=== PATIENT | female | born 1985 | race American Indian/Alaskan Native ===

== ENCOUNTER 2024-12-07 17:54 | Emergency (ER) | payer OTHER ==
--- OUTSIDE RECORDS SUMMARY | 2024-12-07 17:57 | XMS REPORT | Continuity of Care Document ---
Author Name Unknown Address [address] [facility] [address] [place] [address] [facility] Address [address] [facility] [address] [place] [address] Care Team Providers Care Sales Agent Fire Insurance Name Role Phone Kandace Moulton Primary Care Physician Ileana MAGDALENO MD Attending Clinician UnavailPPAO Bae Attending Clinician Unavailable [id number] Attending Clinician Unavailable ANKUR JANE Attending Clinician Unavailable BALWINDER JASSO Attending Clinician BALWINDER Jacob Attending Clinician Balwinder Jacob MD Attending Clinician [phone]- [phone] LUI ANTONIO Attending Clinician Unavailable PENG RAGSDALE Attending Clinician Unavailable LUCI BROCK Attending Clinician UnavailHIMANSHU Hancock Attending Clinician UnavailSANDY Mcdonnell Attending Clinician Unavailable JASEN LAGUNAS Attending Clinician Unavailable SHELLY INGRAM Attending Clinician UnavailKANDACE Brice Attending Clinician Unavailable Visit, [facility] Nurse Attending Clinician Kandace Campos Attending Clinician [phone] Doctor Unassigned, Odanah Attending Clinician U Zeb Shi MD Attending Clinician [phone] FoGhanshyam Mcgowan Attending Clinician [phone] ZEB HERNANDEZ Attending Clinician Unavailable Tre Rosario ENP Attending Clinician [phone] ZEB HERNANDEZ Admitting Clinician Unavailable Payers Payer Name Policy Type Policy Number Effective Date Expirati on Date Source SELF-PAY CI [id number] [employer] [id number] 2022 00:00:00 MEDICAID ALIEN PENDING PENDING 2022 00:00:00 [facility] HELEN RADHIKA COPAY FOCUS 9 [id number] 2024 00:00:00 [facility]/ THI HOLLY OON [id number] 2024 00:00:00 [facility] HELEN MP 1 [id number] 2023 00:00:00 [employer] [facility] 2 [id number] 2023 00:00:00 FAMILY PLANNING LOLI 0-100% [id number] 2022 00:00:00 Problems Condition Name Condition Details Condition Category Status Onset Date Resolution Date Last Treatment Date Treating Clinician Comments Source Recent foreign travel Recent foreign travel Disease Active 09-19 00:00: 00 [facility] Vaginal discharge during in second trimester Vaginal discharge during in second trimester Disease Active 09-19 00:00: 00 [facility] Obesity in Obesity in Disease Active 09-19 00:00: 00 [facility] History of delivery, currently History of delivery, currently Disease Active 09-19 00:00: 00 [facility] Obesity (BMI 30-39.9) Obesity (BMI 30-39.9) Disease Active 09-18 00:00: 00 [facility] Allergies, Adverse Reactions, Alerts Allergy Name Allergy Type Status Severity Reaction(s) Onset Date Inactive Date Treating Clinician Comments Source NO KNOWN ALLERGIE S Drug Class Active [facility] Social History Social Habit Start Date Stop Date Quantity Comments Source ASSERTION Not Thi Holly - External Sexual orientation Debby Holly - External Tobacco use and exposure 2024-07-21 00:00:00 2024-07-21 00:00:00 Smokeless tobacco non-user Thi Holly - External History of Social function 2024-07-21 00:00:00 2024-07-21 00:00:00 Thi Holly - External Alcoholic beverage intake 2023-05-24 00:00:00 2023-05-24 00:00:00 Lifetime non-drinker (finding) [facility] Sex 2023-04-28 19:30:04 2023-04-28 19:30:04 Female (finding) Thi Hernandezsana - External Alcohol intake 2022-09-24 00:00:00 2022-09-24 00:00:00 Lifetime non-drinker (finding) [facility] Exposure to SARS-CoV-2 (event) 2022-09-07 00:00:00 2022-09-17 23:12:00 Not sure [facility] Sex assigned at 1985 00:00:00 1985 00:00:00 Thi Holly - External Smoking Status Start Date Stop Date Source Tobacco smoking consumption unknown Thi Zelaya Never smoked tobacco Thi Holly - External Medications Ordered Medication Name Filled Medication Name Start Date Stop Date Current Medication? Ordering Clinician Indication Dosage Frequency Signature (SIG) Comments Components Source BIOTIN OR 07-21 10:28: 02 Yes Take by mouth. Thi live Cholecalcif steven (Vitamin D) 50 MCG (2000 UT) oral Tablet 07-21 10:28: 02 Yes 2000U QD Take 1 tablet (2,000 units total) by mouth daily. Thi live Amitriptyli ne HCl 25 MG oral Tablet 07-21 00:00: 00 Yes [id number] 25mg QD Take 1 tablet (25 mg total) by mouth nightly. Thi live BIOTIN OR 2023-04 15:50: 47 Yes Take by mouth. Thi live Cholecalcif steven (Vitamin D) 50 MCG (2000 UT) oral Tablet 2023-04 15:50: 47 Yes 2000U QD Take 1 tablet (2,000 units total) by mouth daily. Thi live Cholecalcif steven (Vitamin D) 50 MCG (2000 UT) oral Tablet 2023-04 16:40: 28 Yes 2000U QD Take 1 tablet (2,000 units total) by mouth daily. Tih live BIOTIN OR 2023-04 16:39: 20 Yes Take by mouth. Thi live Cetirizine (ZYRTEC) 10 MG oral Tablet 2023-04 00:00: 00 07-21 00:00 :00 No [id number] 10mg QD Take 1 tablet (10 mg total) by mouth daily. Thi live FLUTICASONE PROPIONATE, NASAL, 50 MCG/ACT nasal Suspension 2023-04 00:00: 00 07-21 00:00 :00 No [id number] 50ug QD Use 1 spray (50 mcg total) in each nostril daily. Thi live Ipratropium Cicero 0.03 % nasal Solution 2023-04 00:00: 00 07-21 00:00 :00 No [id number] 2{spray } Use 2 sprays in each nostril every 12 hours. Thi live BIOTIN OR 10-19 15:02: 49 Yes Take by mouth. Thi live Cholecalcif steven (Vitamin D) 50 MCG (2000 UT) oral Tablet 10-19 15:02: 49 Yes 2000U QD Take 1 tablet (2,000 units total) by mouth daily. hTi live Vit-Fe Fumarate-FA ( Vitamin) 27-0.8 MG oral Tablet 01-06 00:00: 00 Yes 1{tbl} QD Take 1 tablet by mouth daily. Thi live metroNIDAZO LE (FLAGYL) 500 mg tablet 09-25 00:00: 00 10-03 04:59 :00 No [id number] 500mg Take 1 tablet by mouth every 12 (twelve) hours for 7 days. [facility] Immunizations Ordered Immunization Name Filled Immunization Name Date Status Comments Source PPD (TB) 2022-09-22 00:00:00 Completed [facility] PPD (TB) 2022-09-22 00:00:00 Completed [facility] PPD (TB) 2022-09-22 00:00:00 Completed [facility] PPD (TB) 2022-09-22 00:00:00 Completed [facility] PPD (TB) 2022-09-22 00:00:00 Completed [facility] PPD-Protein Derivative (Purified)- Tuberculin Unknown Completed Thi Hernandezold - External Influenza Virus Vaccine, No Preserv, age 6 months and up Unknown Completed Thi Holly - External Tdap- (Boostrix, Adacel) Unknown Completed Thi Hernandezold - External PPD (TB) Unknown Completed [facility] Vital Signs Vital Name Observation Time Observation Value Comments S ource Body temperature 2024-07-21 15:21:00 36.72 Sariah Thi Seybold - External Respiratory rate 2024-07-21 15:21:00 20 /min Thi Seybold - External Body height 2024-07-21 15:21:00 167.6 cm Lindsay ey Seybold - External Body weight 2024-07-21 15:21:00 104.327 kg Lindsay ey Seybold - External BMI 2024-07-21 15:21:00 37.12 kg/m2 Lindsay ey Seybold - External Oxygen saturation in Arterial blood by Pulse oximetry 2024-07-21 15:21:00 99 /min Thi Bernalybo ld - External Systolic blood pressure 2024-07-21 15:21:00 112 mm[Hg] Thi Seybo ld - External Diastolic blood pressure 2024-07-21 15:21:00 78 mm[Hg] Thi Seybo ld - External Heart rate 2024-07-21 15:21:00 81 /min Kelse y Seybold - External Systolic blood pressure 2024-04-19 21:49:00 131 mm[Hg] Thi Seybo ld - External Diastolic blood pressure 2024-04-19 21:49:00 84 mm[Hg] Thi Seybo ld - External Heart rate 2024-04-19 21:49:00 76 /min Kelse y Seybold - External Body temperature 2024-04-19 21:49:00 36.17 Sariah Thi Seybold - External Respiratory rate 2024-04-19 21:49:00 15 /min Thi Seybold - External Body height 2024-04-19 21:49:00 167.6 cm Lindsay ey Seybold - External Body weight 2024-04-19 21:49:00 59.875 kg Lindsay ey Seybold - External BMI 2024-04-19 21:49:00 21.31 kg/m2 Lindsay ey Seybold - External Oxygen saturation in Arterial blood by Pulse oximetry 2024-04-19 21:49:00 99 /min Thi Seybo ld - External Systolic blood pressure 2024-03-10 22:39:00 126 mm[Hg] Thi Seybo ld - External Diastolic blood pressure 2024-03-10 22:39:00 79 mm[Hg] Thi Seybo ld - External Heart rate 2024-03-10 22:39:00 82 /min Kelse y Seybold - External Body temperature 2024-03-10 22:39:00 36.67 Sariah Thi Seybold - External Respiratory rate 2024-03-10 22:39:00 18 /min Thi Seybold - External Body height 2024-03-10 22:39:00 167.6 cm Lindsay ey Seybold - External Body weight 2024-03-10 22:39:00 104.146 kg Lindsay ey Seybold - External BMI 2024-03-10 22:39:00 37.06 kg/m2 Lindsay ey Seybold - External Systolic blood pressure 2023-10-20 19:59:00 104 mm[Hg] Thi Seybo ld - External Diastolic blood pressure 2023-10-20 19:59:00 70 mm[Hg] Thi Seybo ld - External Heart rate 2023-10-20 19:59:00 64 /min Kelse y Seybold - External Body temperature 2023-10-20 19:59:00 36.83 Sariah Thi Seybold - External Respiratory rate 2023-10-20 19:59:00 18 /min Thi Seybold - External Body height 2023-10-20 19:59:00 167.6 cm Lindsay ey Seybold - External Body weight 2023-10-20 19:59:00 102.785 kg Lindsay ey Seybold - External BMI 2023-10-20 19:59:00 36.57 kg/m2 Lindsay Holly - External Oxygen saturation in Arterial blood by Pulse oximetry 2023-10-20 19:59:00 99 /min Thi Lozoya ld - External Diastolic blood pressure 2022-09-24 15:00:00 74 mm[Hg] [facility] Heart rate 2022-09-24 15:00:00 80 /min [facility] Body temperature 2022-09-24 15:00:00 36.44 Sariah [facility] Respiratory rate 2022-09-24 15:00:00 16 /min [facility] Body height 2022-09-24 15:00:00 170.2 cm [facility] Body weight 2022-09-24 15:00:00 102.967 kg [facility] BMI 2022-09-24 15:00:00 35.55 kg/m2 [facility] Systolic blood pressure 2022-09-24 15:00:00 126 mm[Hg] [facility] Systolic blood pressure 2022-09-22 14:33:00 119 mm[Hg] [facility] Diastolic blood pressure 2022-09-22 14:33:00 77 mm[Hg] [facility] Heart rate 2022-09-22 14:33:00 79 /min [facility] Body temperature 2022-09-22 14:33:00 36.17 Sariah [facility] Respiratory rate 2022-09-22 14:33:00 16 /min [facility] Body height 2022-09-22 14:33:00 170.2 cm [facility] Body weight 2022-09-22 14:33:00 102.876 kg [facility] BMI 2022-09-22 14:33:00 35.52 kg/m2 [facility] Systolic blood pressure 2022-09-19 18:30:00 127 mm[Hg] [facility] Diastolic blood pressure 2022-09-19 18:30:00 84 mm[Hg] [facility] Heart rate 2022-09-19 18:30:00 74 /min [facility] Body temperature 2022-09-19 18:30:00 36.22 Sariah [facility] Respiratory rate 2022-09-19 18:30:00 19 /min [facility] Body height 2022-09-19 18:30:00 170.2 cm [facility] Body weight 2022-09-19 18:30:00 102.649 kg [facility] BMI 2022-09-19 18:30:00 35.44 kg/m2 [facility] Systolic blood pressure 2022-09-18 05:00:00 110 mm[Hg] [facility] Diastolic blood pressure 2022-09-18 05:00:00 59 mm[Hg] [facility] Heart rate 2022-09-18 05:00:00 71 /min [facility] Oxygen saturation in Arterial blood by Pulse oximetry 2022-09-18 05:00:00 100 /min [facility] Body temperature 2022-09-18 04:45:00 36.78 Sariah [facility] Respiratory rate 2022-09-18 04:45:00 18 /min [facility] Body height 2022-09-18 04:44:00 165.1 cm [facility] Body weight 2022-09-18 04:44:00 104.463 kg [facility] BMI 2022-09-18 04:44:00 38.32 kg/m2 [facility] Procedures Procedure Date / Time Performed Performing Clinicia n Source EXTERNAL PROVIDER RECORDS 2022-09-22 05:01:00 Doctor Unassigned, Odanah [facility] ASSIGNMENT OF BENEFITS 2022-09-19 18:11:34 Docto r Unassigned, Odanah [facility] POCT URINALYSIS W/O SPECIFIC GRAVITY 2022-09-19 00:00:00 Ghanshyam Mcdonnell [facility] LCC OR CLC ONLY - AMNISURE ROM TEST 2022-09-18 05:45:00 Zeb Hernandez [facility] CONSENT/REFUSAL FOR DIAGNOSIS AND TREATMENT 2022-09-18 03:59:16 Doctor Unassigned, Odanah [facility] Encounters Start Date/Time End Date/Time Encounter Type Admission Type Attending Clinicians Care Facility Care Department Encounter ID Source 2023-06-09 09:20:02 Outpatient IBNS IBNS [id number] Khari Johnathan 2022-11-07 11:56:46 Outpatient [facility] [id number] [facility] 2022-09-19 13:31:22 Outpatient X [facility] PUJA [id number] [facility] 2024-08-25 00:00:00 2024-08-25 00:00:00 Outpatient MD THI HANSEN [id number] Thi [facility] 2024-08-01 00:00:00 2024-08-01 00:00:00 Outpatient PAPO MARAVILLA [id number] [facility] 2024-07-25 00:00:00 2024-07-25 00:00:00 Outpatient PAPO MARAVILLA [id number] Thi [facility] 2024-07-21 11:15:00 2024-07-21 11:15:00 Outpatient [id number] THI SHERIFF [id number] [facility] 2024-07-21 10:30:00 2024-07-21 10:30:00 Outpatient PAPO MARAVILLA [id number] [facility] 2024-07-12 11:00:00 2024-07-12 11:00:00 Outpatient ANKUR JANE [id number] [facility] 2024-05-03 09:00:00 2024-05-03 09:00:00 Outpatient R BALWINDER PAGAN [facility] [id number] [facility] 2024-04-27 00:00:00 2024-04-28 13:56:20 Telephone Balwinder Pagan [facility] [id number] [id number] [id number] [facility] 2024-04-19 15:00:00 2024-04-19 15:00:00 Outpatient LUI ANTONIO THI SHERIFF [id number] Thi [facility] 2024-03-10 16:30:00 2024-03-10 16:30:00 Outpatient PENG RAGSDALE THI SHERIFF [id number] Thi [facility] 2023-10-23 15:30:00 2023-10-23 15:30:00 Outpatient DELMY LUCIGiuliana SHERIFF [id number] Thi [facility] 2023-10-23 08:30:00 2023-10-23 08:30:00 Outpatient MIGNON PACHECORICH THI SHERIFF [id number] [facility] 2023-10-21 00:00:00 2023-10-21 00:00:00 Outpatient [facility]ONTANO [id number] [facility] 2023-10-21 00:00:00 2023-10-21 00:00:00 Outpatient SANDY MONTANO [id number] [facility] 2023-10-20 15:15:00 2023-10-20 15:15:00 Outpatient SANDY MONTANO [id number] [facility] 2023-06-10 14:00:00 2023-06-10 14:00:00 Outpatient JASEN LAGUNAS [id number] Thi [facility] 2023-06-09 08:00:00 2023-06-09 08:00:00 Outpatient SHELLY INGRAM [id number] [facility] 2023-06-09 07:50:00 2023-06-09 07:50:00 Outpatient NPI NPI [id number] 2022-10-17 14:15:00 2022-10-17 14:15:00 Outpatient KANDACE [facility] [id number] [facility] 2022-09-24 09:30:00 2022-09-24 10:01:21 Outpatient KANDACE [facility] [id number] [facility] 2022-09-24 09:30:00 2022-09-24 10:01:21 Nurse Visit Visit, Sug-Rmchp Sonia Mahansie [facility] SUPERVISOR [employer] MOTTLE [facility] [id number] 350.1.13.10 [id number] [id number] [facility] 2022-09-24 00:00:00 2022-09-24 00:00:00 Patient Secure Msg Doctor Unassigned, Odanah [facility] SUPERVISOR [employer] [facility] & [facility]ILD [facility] 1.0.114 350.1.13.10 4.2.7.2.686 [id number] [facility] 2022-09-23 00:00:00 2022-09-23 00:00:00 Telephone David [facility] ([facility]) 1..114 350.1.13.10 [id number] [id number] [facility] 2022-09-22 09:30:00 2022-09-22 10:01:42 Outpatient [facility] [id number] [facility] 2022-09-22 09:30:00 2022-09-22 10:01:42 Nurse Visit Visit, Sug-Rmchp Nurse [facility]GYN [facility] 1.0.114 350.1.13.10 4.2.7.2.686 [id number] [facility] 2022-09-22 00:00:00 2022-09-22 00:00:00 Orders Only Doctor Unassigned, Odanah [facility] 1.20.114 350.1.13.10 4.2.7.2.686 [id number] [facility] 2022-09-22 00:00:00 2022-09-22 00:00:00 Telephone Sathya Ghanshyam [facility] SUPERVISOR [employer] [facility] [id number] 350.1.13.10 4.2.7.2.686 [id number] [facility] 2022-09-19 13:15:00 2022-09-19 15:04:13 [facility] [id number] [facility] 2022-09-19 13:15:00 2022-09-19 15:04:13 Initial Visit Sonia Wallssie [facility] SUPERVISOR [employer] [facility] [id number] 350.1.13.10 4.2.7.2.686 [id number] [facility] 2022-09-19 12:45:00 2022-09-19 13:20:33 [facility] [id number] [facility] 2022-09-19 00:00:00 2022-09-19 00:00:00 Orders Only Doctor Unassigned, Odanah [facility] [id number] 350.1.13.10 4.2.7.2.686 [id number] [facility] 2022-09-17 23:16:00 2022-09-18 01:08:00 Outpatient X ZEB HERNANDEZ [facility] [id number] [facility] 2022-09-17 23:16:00 2022-09-18 01:08:00 Emergency Tre Rosario [facility] ([facility]) [id number] 350.1.13.10 [id number] [id number] [facility] Results Test Description Test Time Test Comments Results Result Co mments Source [facility] Notes Date/Time Note Provider Source 2024-07-21 10:28:14 Chief Complaint Patient presents with Physical Fasting for labs Ilsa Elizondo LVN [facility] 2024-04-28 13:54:21 Name and verified, pt states her appt was canceled due to [facility] not accepting her insurance. Pt will contact [facility]. Jacqueline Bloom RN 04/28/2024 1:56 PM RAL SUPPLY MANAGER Jacqueline Bloom RN [facility] 2024-04-27 16:22:51 Attempted to reach pt, no answer, left a vm Jacqueline Bloom RN 04/27/2024 4:[address] [facility] 2024-04-27 15:38:33 New ob, lmp 03/24/24 No prev ob care, tried to jhonny pt on the (7weeks), pt wanted to be seen before the I Lofton [facility] 2024-04-19 15:50:55 Chief Complaint Patient presents with Cyst [facility] area [phone] (home) [phone] (work) Armida Willett MA RAL SUPPLY MANAGER Armida Willett MA [facility] 2024-03-10 16:39:21 Chief Complaint Patient presents with Ear Pain Both ears Trini Zarate RAL SUPPLY MANAGER [facility] 2023-10-20 15:02:51 Chief Complaint Patient presents with Breast Problem Pt states she is currently her 8 month old baby. Pt reports while she felt a lump on her right nipple that hurts and itches. X 6 days LIZA William II [facility]
[2024-12-07] MEDS ORDERED: NA CHLORIDE 0.9% 1,000 ML ONE (18:16)
[2024-12-07 18:29] LABS: Absolute Lymphocytes (CBC) 3.8 K/uL (0.7-4.9); Hematocrit 38.6 % (36.0-45.0); Hemoglobin 12.4 g/dL (12.0-15.0); MCH 25.7 pg (27.0-35.0); MCHC 32.2 g/dL (32.0-36.0); MCV 79.9 fL (80-100); MPV 7.6 fL (7.6-11.3); Nucleated RBC Absolute Count 0.0 (0-0); Nucleated Red Blood Cells % 0.0 % (0-0); RBC Red Blood Cell Count 4.83 M/uL (3.86-4.86); White Blood Count 11.00 thou/uL (4.3-10.9)
[2024-12-07 18:47] LABS: ALT/SGPT 26.0 U/L (13-56); Albumin 3.4 g/dL (3.4-5.0); Albumin/Globulin Ratio 0.9 (1.1-1.8); Alkaline Phosphatase 61.0 U/L (45-117); Anion Gap 11.2 mEq/L (5.0-15.0); BUN Blood Urea Nitrogen 11.0 mg/dL (7-18); Globulin 4.0 g/dL (2.3-3.5); Glucose Level 106.0 mg/dL (74-106)
[2024-12-07 18:48] LABS: AST/SGOT 23.0 U/L (15-37); Potassium 4.2 mEq/L (3.5-5.1)
--- NOTE | 2024-12-07 19:07 | ER ---
Nurse's Notes [facility] Name: Frances Hall Age: 39 yrs Sex: Female : 1985 Arrival Date: 12/07/2024 Time: 17:54 Bed 20 Private MD: Diagnosis: Syncope Presentation: 12/07 18:07 Chief complaint: EMS states: PASSED OUT AFTER TAKING HYDROCODONE TODAY COMPLAINED OF db NAUSEA AND SOB AND THEN PASSED OUT. FAMILY CALLED EMS. EMS GAVE ZOFRAN 4 MG AND NS BOLUS. Coronavirus screen: Client denies travel out of the [place] in the last 14 days. At this time, the client does not indicate any symptoms associated with coronavirus-19. Ebola Screen: Patient negative for fever greater than or equal to 101.5 degrees Fahrenheit, and additional compatible Ebola Virus Disease symptoms Patient denies exposure to infectious person. Patient denies travel to an Ebola-affected area in the 21 days before illness onset. No symptoms or risks identified at this time. Initial Sepsis Screen: Does the patient meet any 2 criteria? No. Patient's initial sepsis screen is negative. Does the patient have a suspected source of infection? No. Patient's initial sepsis screen is negative. Risk Assessment: Do you want to hurt yourself or someone else? Patient reports no desire to harm self or others. Onset of symptoms was December 07, 2024. 18:07 Method Of Arrival: EMS: [facility] db 18:07 Acuity: JOSE 2 db 18:20 Care prior to arrival: Medication(s) given: Normal saline infusion, zofran 4 mg. db Triage Assessment: 18:10 General: Appears in no apparent distress. comfortable, Behavior is calm, cooperative. db Pain: Denies pain. Neuro: Level of Consciousness is awake, alert, obeys commands, Oriented to person, place, time, situation, Reports a syncopal episode. Historical: - Allergies: 18:11 No Known Allergies; db - PMHx: 18:11 None; db - Immunization history:: Adult Immunizations unknown. - Infectious Disease History:: Denies. - Social history:: Smoking status: Patient denies any tobacco usage or history of. Screenin:34 [facility] ED Fall Risk Assessment (Adult) History of falling in the last 3 months, db including since admission No falls in past 3 months (0 pts) Confusion or Disorientation No (0 pts) Intoxicated or Sedated No (0 pts) Impaired Gait No (0 pts) Mobility Assist Device Used No (0 pt) Altered Elimination No (0 pt) Score/Fall Risk Level 0 - 2 = Low Risk Oriented to surroundings, Maintained a safe environment. Abuse screen: Denies threats or abuse. Denies injuries from another. Nutritional screening: No deficits noted. Tuberculosis screening: No symptoms or risk factors identified. Assessment: 18:19 Reassessment: Patient appears in no apparent distress at this time. Patient and/or db family updated on plan of care and expected duration. Pain level reassessed. Patient is alert, oriented x 3, equal unlabored respirations, skin warm/dry/pink. General: Appears in no apparent distress. comfortable, Behavior is calm, cooperative. Pain: Denies pain. Neuro: Level of Consciousness is awake, alert, obeys commands, Oriented to person, place, time, situation. Cardiovascular: Rhythm is sinus rhythm. Respiratory: Airway is patent Respiratory effort is even, unlabored, Respiratory pattern is regular, symmetrical. Vital Signs: 18:10 BP 120 / 77; Pulse 67; Resp 16; Temp 98.1; Pulse Ox 98% ; Weight 103 kg; Height 5 ft. 7 db in. ; 18:30 BP 117 / 78; Pulse 67; Resp 16; Pulse Ox 99% on R/A; db 19:00 BP 120 / 69; Pulse 66; Resp 16; Pulse Ox 100% on R/A; al5 19:30 BP 130 / 82; Pulse 60; Resp 14; Pulse Ox 100% on R/A; al5 18:10 Body Mass Index 35.56 (103.00 kg, 170.18 cm) db ED Course: 17:58 Patient arrived in ED. kb 17:58 Shital Fernandes FNP-C is [facility]. kb 17:58 Justin Rahman MD is Attending Physician. kb 18:07 Adele Anderson, FATOUMATA is Primary Nurse. db 18:10 Triage completed. db 18:10 Arm band placed on Patient placed in an exam room. db 18:20 Maintain EMS IV. Dressing intact. Good blood return noted. Site clean \T\ dry. Gauge \T\ db site: 20 G RAC. Flushed with 10 mL NS. 18:23 Initial lab(s) drawn, by agriculture laboratory technician, sent to lab. EKG done, by nail tech. ts3 18:34 Patient has correct armband on for positive identification. Bed in low position. Call db light in reach. Side rails up X 1. Client placed on continuous cardiac and pulse oximetry monitoring. NIBP monitoring applied. hospital monitor on. Pulse ox on. NIBP on. Warm blanket given. 19:42 Yane Felipe, RN is Primary Nurse. al5 19:42 Provided Education on: discharge follow up, medications. al5 19:43 No provider procedures requiring assistance completed. IV discontinued, intact, al5 bleeding controlled, No redness/swelling at site. Pressure dressing applied. Administered Medications: 18:15 Drug: NS 0.9% IV 1000 ml IV at 1000 ml once; to be given as a bolus over 60 minutes db Route: IV; Rate: 1000 ml; Site: right antecubital; 19:44 Follow up: Response: No adverse reaction; IV Status: Completed infusion; IV Intake: al5 1000ml Medication: 18:34 VIS not applicable for this client. db Point of Care Testing: Blood Glucose: 18:10 Blood Glucose: 86 mg/dL; db Ranges: Intake: 19:44 IV: 1000ml; Total: 1000ml. al5 Outcome: 19:07 Discharge ordered by . farnaz 19:43 Discharged to home ambulatory, with significant other, al5 19:43 Condition: good 19:43 Discharge instructions given to patient, significant other, Instructed on discharge instructions, follow up and referral plans. Demonstrated understanding of instructions, follow-up care, 19:45 Patient left the ED. al5 Signatures: Shital Fernandes FNP-C FNP-Ckb Benton, Danielle, RN RN db Yane Felipe, RN RN al5 Magda Seymour ts3
--- NOTE | 2024-12-07 19:07 | EDPHYS ---
Physician Documentation [facility] Name: Frances Hall Age: 39 yrs Sex: Female : 1985 Arrival Date: 12/07/2024 Time: 17:54 Bed 20 Private MD: ED Physician Justin Rahman HPI: 12/07 18:25 This 39 yrs old Female presents to ER via EMS with complaints of Syncope. kb 18:25 Pt is a 39 year old female who presents for syncope that occurred just rock breaker. States she kb took a hydrocodone for the first time, got lightheaded and nauseated then passed out. Denies hitting head, falling. EMS states pt was awake when they arrived.. Historical: - Allergies: 18:11 No Known Allergies; db - PMHx: 18:11 None; db - Immunization history:: Adult Immunizations unknown. - Infectious Disease History:: Denies. - Social history:: Smoking status: Patient denies any tobacco usage or history of. ROS: 18:24 Constitutional: As per HPI kb Exam: 18:24 Constitutional: This is a well developed, well nourished patient who is awake, alert, kb and in no acute distress. Head/Face: Normocephalic, atraumatic. ENT: Moist Mucous membranes Cardiovascular: Regular rate Respiratory: Respirations even and unlabored. No increased work of breathing. Talking in full sentences Skin: Warm, dry with normal turgor. Normal color. MS/ Extremity: Pulses equal, no cyanosis. Neurovascular intact. Full, normal range of motion. Neuro: Awake and alert, GCS 15, oriented to person, place, time, and situation. 18:24 ECG was reviewed by the Attending Physician. Vital Signs: 18:10 BP 120 / 77; Pulse 67; Resp 16; Temp 98.1; Pulse Ox 98% ; Weight 103 kg; Height 5 ft. 7 db in. ; 18:30 BP 117 / 78; Pulse 67; Resp 16; Pulse Ox 99% on R/A; db 19:00 BP 120 / 69; Pulse 66; Resp 16; Pulse Ox 100% on R/A; al5 19:30 BP 130 / 82; Pulse 60; Resp 14; Pulse Ox 100% on R/A; al5 18:10 Body Mass Index 35.56 (103.00 kg, 170.18 cm) db MDM: 17:58 Medical Screening Exam initiated kb 19:20 Differential Diagnosis: cardiac arrhythmia, drug effect, idiopathic syncope, vasovagal kb episode. Data reviewed: vital signs, nurses notes. Test considered but Not performed: CT: ct head but pt has no neuro deficits. Historians other than the Patient: EMS: [facility]. Counseling: I had a detailed discussion with the patient and/or guardian regarding the historical points, exam findings, and any diagnostic results supporting the discharge/admit diagnosis, lab results, the need for outpatient follow up, a family practitioner, to return to the emergency department if symptoms worsen or persist or if there are any questions or concerns that arise at home. 12/07 17:59 Order name: CBC with Diff; Complete Time: 18:31 kb 12/07 17:59 Order name: CMP; Complete Time: 18:51 kb 12/07 17:59 Order name: IV Start; Complete Time: 18:23 kb 12/07 17:59 Order name: EKG - Nurse/Tech; Complete Time: 18:23 kb EC:24 Rate is 61 beats/min. Rhythm is regular. QRS [place] is Normal. TN interval is normal at kb 158 msec. QRS interval is normal at 86 msec. QT interval is normal at 448 msec. Administered Medications: 18:15 Drug: NS 0.9% IV 1000 ml IV at 1000 ml once; to be given as a bolus over 60 minutes db Route: IV; Rate: 1000 ml; Site: right antecubital; 19:44 Follow up: Response: No adverse reaction; IV Status: Completed infusion; IV Intake: al5 1000ml Point of Care Testing: Blood Glucose: 18:10 Blood Glucose: 86 mg/dL; db Ranges: Critical Glucose Levels:Adult <50 mg/dl or >400 mg/dl <40 mg/dl or >180 mg/dl Disposition: 12/08 13:54 Co-signature as Attending Physician, Jsutin Rahman MD I agree with the assessment and mauri plan of care. Disposition Summary: 12/07/24 19:07 Discharge Ordered Notes: Location: Home kb Condition: Stable kb Diagnosis - Syncope kb Followup: kb - With: Emergency Department - When: As needed - Reason: Worsening of condition Followup: kb - With: Private Physician - When: 2 - 3 days - Reason: Recheck today's complaints, Continuance of care, Re-evaluation by your physician Discharge Instructions: - Discharge Summary Sheet kb - Syncope, [id number] kb Forms: - Medication Reconciliation Form kb - Antibiotic Education kb - Prescription Opioid Use kb - Patient Portal Instructions kb - Leadership Thank You Letter kb Signatures: Dispatcher [employer] Shital Paez, LIBRA HEAD-Justin Gutiérrez MD MD cha Benton, Danielle, RN RN db Yane Felipe RN al5
[2024-12-08 02:54] VITALS: TEMP 98.1
[2024-12-08 02:58] VITALS: O2SAT 100
[2024-12-08 02:59] VITALS: BP 130/82
== END 2024-12-07 19:45 | disposition home or self-care (01) ==
LOC: ER 17:54
DX: R55 Syncope and collapse (principal)
CPT/HCPCS: 93005; 85025; 36415; 80053; 96360; 99285; J7030